=== PATIENT | female | born 1980 | race Caucasian/White ===

== ENCOUNTER 2017-03-14 07:00 | Inpatient (IN) | payer BC, OTHER ==
[2017-03-14] VITALS (24 sets, daily range): BP systolic 99–147; BP diastolic 62–87
[~2017-03-14] VITALS: Ht 160 cm; Wt 63.1 kg
[~2017-03-14 07:00] MED LIST: AMBIEN10 M1 PO; ATARAX,VISTARIL25 MG PO; ATIVAN2 MG PO; BUSPAR5 MG PO; CLONAZEPAM1 MG PO; DEPAKOTE500 MG PO; DESYREL100 MG PO; DOXYCYCLINE HY100 MG PO; FIORICET WI1 CAPSULE PO; HYDROCODON-ACE1 EAC7 PO; KLONOPIN1 MG PO; LEVOTHYROXINE25 MCG PO; LORTAB 10-3251 EACH PO; MOTRIN800 MG PO; PREDNISONE20 MG PO; PRENATAL 19 CH1 EAC1 PO; PROMETHAZINE HC25 M1 PO; SERTRALINE HCL100 MG PO; TOPIRAMATE100 MG PO; TRAZODONE; VICODIN 5-3001 EACH PO; ZOFRAN ODT4 MG PO; [UNRECOGNIZED DRUG - OTHER]
[2017-03-14 08:04] LABS: EOSINOPHIL (%) 0.8 % (0-5); EOSINOPHIL COUNT 0.1 K/uL (0-0.3); IMMATURE GRANULOCYTE (%) 0.6 % (0.0-0.7); IMMATURE GRANULOCYTE COUNT 0.1 K/uL; INSTRUMENT ABS NEUTROPHIL CT 5.5 K/uL; LYMPHOCYTE COUNT 1.6 K/uL (1.0-2.8); MCH 29.8 PG (29.0-34.0); MCHC 32.6 G/DL (30.0-36.0); MCV 91.2 FL (83-99); MEAN PLAT.VOLUME 13.5 uM^3 (9.5-12.4); MONOCYTE COUNT 0.6 K/uL (0-0.8); NEUTROPHIL (%) 70.1 % (45-76); NEUTROPHIL COUNT 5.5 K/uL (1.8-6.4); PLATELET COUNT 144 K/uL (156-360); RBC DIS.WIDTH-SD 42.6 % (39-53); RED BLOOD COUNT 3.73 M/uL (3.80-5.20); WHITE BLOOD COUNT 7.9 K/uL (4.1-10.2)
[2017-03-14] MEDS ORDERED: PRENATAL VITAM1 EA11 PO (08:38)
[2017-03-14] MEDS ORDERED: PROMETHAZINE HC25 M1 PO (08:39)
[2017-03-14] MEDS ORDERED: AMBIEN5 MG PO (08:40)
[2017-03-14] MEDS ORDERED: FIORICET 50-301 EAC1 PO (08:42)
[2017-03-14] MEDS ORDERED: TYLENOL EXTRA500 MG PO (08:44)
[2017-03-14] MEDS ORDERED: MAKENA250 MG/1 M IM (08:56)
[2017-03-14] MEDS ORDERED: IBUPROFEN800 MG PO (22:22)
[2017-03-15 00:50] VITALS: BP 129/69
[2017-03-15 03:29] VITALS: BP 140/91
[2017-03-15 06:02] VITALS: BP 125/70
[2017-03-15 07:06] VITALS: BP 127/80
[2017-03-15 16:16] LABS: AMPHETAMINE NEGATIVE (500 ng/mL); BARBITURATES NEGATIVE (200 ng/mL); BENZODIAZEPINES NEGATIVE (150 ng/mL); COCAINE NEGATIVE (150 ng/mL); INTERNAL CONTROLS VALID? YES; METHADONE NEGATIVE (200 ng/mL); METHAMPHETAMINE NEGATIVE (500 ng/mL); OPIATES (MORPHINE) NEGATIVE (100 ng/mL); OXYCODONE NEGATIVE (100 ng/mL); PHENCYCLIDINE NEGATIVE (25 ng/mL); PROPOXYPHENE NEGATIVE (300 ng/mL); THC CANNABINOIDS NEGATIVE (50 ng/mL); TRICYCLIC ANTIDEPRESSANTS NEGATIVE (300 ng/mL)
[2017-03-16 07:45] VITALS: BP 124/81
== END 2017-03-16 14:30 | disposition home or self-care (01) | DRG 774 ==
LOC: LDRP-OP 07:00 → 2WEST 07:01 → LDRP-OP 07:48 → 2WEST 21:53 → LDRP-OP 04-17 13:37
PROVIDERS: Advanced Practice Midwife; Obstetrics & Gynecology
PROC: 10E0XZZ Delivery of Products of Conception, External Approach (ICD-10-PCS; principal; 2017-03-14)
PROC: 00HU33Z Insertion of Infusion Device into Spinal Canal, Percutaneous Approach (ICD-10-PCS; principal; 2017-03-14)
PROC: 3E0P3VZ Introduction of Hormone into Female Reproductive, Percutaneous Approach (ICD-10-PCS; principal; 2017-03-14)
PROC: 3E0S3BZ Introduction of Anesthetic Agent into Epidural Space, Percutaneous Approach (ICD-10-PCS; principal; 2017-03-14)
PROC: 10907ZC Drainage of Amniotic Fluid, Therapeutic from Products of Conception, Via Natural or Artificial Opening (ICD-10-PCS; principal; 2017-03-14)
DX: O99.824 Streptococcus B carrier state complicating childbirth (principal); Z3A.39 39 weeks gestation of pregnancy; Z37.0 Single live birth; O72.1 Other immediate postpartum hemorrhage; Z87.891 Personal history of nicotine dependence; Z80.3 Family history of malignant neoplasm of breast; Z80.0 Family history of malignant neoplasm of digestive organs; O99.52 Diseases of the respiratory system complicating childbirth; J45.909 Unspecified asthma, uncomplicated
CPT/HCPCS: 85025; C1755; J0595; J2540; J3010; J7120